=== PATIENT | male | born 1950 | race Caucasian/White ===

== ENCOUNTER → 2017-10-12 | Emergency (ER) | payer OTHER ==
[~2017-10-12] VITALS: Ht 190.5 cm; Wt 82.6 kg
== END | disposition home or self-care (01) ==
LOC: ER 09:16
DX: S00.83XA Contusion of other part of head, initial encounter (principal); S20.212A Contusion of left front wall of thorax, initial encounter; R53.1 Weakness; W18.09XA Striking against other object with subsequent fall, initial encounter; Y93.89 Activity, other specified; Y92.018 Other place in single-family (private) house as the place of occurrence of the external cause; Y99.8 Other external cause status

== ENCOUNTER 2017-12-11 15:24 | Emergency (ER) | payer OTHER ==
[~2017-12-11] VITALS: Ht 190.5 cm; Wt 79.4 kg
== END 2017-12-11 22:25 | disposition home or self-care (01) ==
LOC: ER 15:24
DX: I10 Essential (primary) hypertension (principal); N39.0 Urinary tract infection, site not specified; B96.89 Other specified bacterial agents as the cause of diseases classified elsewhere

== ENCOUNTER 2024-04-11 11:42 | Inpatient (IN) | payer OTHER ==
[~2024-04-11] VITALS: Ht 182.9 cm; Wt 149.7 kg
--- NOTE | 2024-04-11 11:53 | NUR ---
PTE ALERTA Y ORIENTADO X3 EN COMPANIA DE AMBULANCIA Y FAMILIAR. ESTA REFIERE PTE CAERSE EN LA CASA. SE REALIZA DXT 167MG/DL
[2024-04-11] MEDS ORDERED: 0.9 % SODIUM CHLORIDE 1,000 ML IV STA (12:02)
[2024-04-11] MEDS ORDERED: KETOROLAC TROMETHAMINE 60 MG VIAL IM STA (12:03)
[2024-04-11] MEDS ORDERED: THIAMINE HCL 100 MG/ML 2 ML VIAL IM STA (12:04)
--- NOTE | 2024-04-11 12:17 | NUR ---
SE LE ORIENTA A PACIENTE SOBRE LA ORDEN MEDICA, REFIERE ENTENDER LAS MISMAS. SE CANALIZA Y SE LE COLOCA EL IVF'S, SE LE TIFFANIE LAS MUESTRA, SE ADMINISTRAN LOS MEDICAMENTOS Y SE NOTIFICA PARA REALIZA CT JACKIE LA ORDEN MEDICA.
[2024-04-11 13:25] LABS: HEMATOCRIT 43.5 % (39.0-48.0); HEMOGLOBIN 14.6 g/dL (13-16.00); MEAN CELL VOLUME 98.4 fL (80.0-100.00); MEAN CORPUSCULAR HEMOGLOBIN 33.1 pg (27.00-32.0); MEAN CORPUSCULAR HGB CONC 33.6 g/dl (32.0-36.0); PLATELET COUNT 174 K/uL (150-450); RED BLOOD COUNT 4.42 M/uL (4.00-6.00); RED CELL DISTRIBUTION WIDTH 16.3 % (11.5-14.5)
[2024-04-11 13:47] LABS: ALBUMIN 3.1 gm/dL (3.4-5.0); BILIRUBIN TOTAL 1.74 mg/dL (0.3-1.2); BILIRUBIN,CONJUGATED 0.61 mg/dL (0.0-0.2); BILIRUBIN,UNCONJUGATED 1.13 mg/dL (0.0-0.6); CALCIUM 8.3 mg/dL (8.5-10.1); CREATININE SERUM 1.81 mg/dL (0.70-1.30); GFR 37.04; POTASSIUM 3.65 mEq/L (3.5-5.1); TOTAL PROTEIN 6.4 gm/dL (6.4-8.2)
[2024-04-11 19:36] LABS: HEMOGLOBIN 14.6 g/dL (13-16.00); MEAN CELL VOLUME 98.8 fL (80.0-100.00); MEAN CORPUSCULAR HEMOGLOBIN 33.6 pg (27.00-32.0); PLATELET COUNT 158 K/uL (150-450); RED BLOOD COUNT 4.35 M/uL (4.00-6.00); RED CELL DISTRIBUTION WIDTH 16.3 % (11.5-14.5)
[2024-04-11] MEDS ORDERED: FAMOTIDINE/PF 20 MG in 0.9 % SODIUM CHLORIDE 100 ML IV SCH (21:33)
[2024-04-11] MEDS ORDERED: CEFTRIAXONE SODIUM 2,000 MG in 0.9 % SODIUM CHLORIDE 100 ML IV SCH (21:36)
[2024-04-11] MEDS ORDERED: 0.9 % SODIUM CHLORIDE 1,000 ML IV SCH (21:45)
[2024-04-11] MEDS ORDERED: ONDANSETRON HCL 4 MG in 0.9 % SODIUM CHLORIDE 50 ML IV PRN (21:45)
[2024-04-11] MEDS ORDERED: ENALAPRILAT DIHYDRATE 1.25 MG/ML VIAL IV PRN (22:00)
[2024-04-11 22:30] LABS: PH,URINE 5.5 (5.0-8.0); URINE APPEARANCE Cloudy; URINE BILIRRUBIN Small (NEGATIVE); URINE BLOOD Moderate; URINE COLOR Dark Yellow; URINE GLUCOSE Negative (NEGATIVE); URINE LEUKOCYTE Trace; URINE NITRATE Negative; URINE PROTEIN 30 (NEGATIVE)
[2024-04-11 22:33] LABS: URINE BACTERIA 284.7 uL (0.0-1933); URINE EPITHELIAL CELLS 37.8 uL (0.0-38.8); URINE RBC 14.8 uL (0.0-20.8); URINE WBC 8.9 uL (0.0-23.2)
[2024-04-12] MEDS ORDERED: LACTULOSE 20 G/30 ML BLIST.PACK PO SCH
[2024-04-12 09:42] LABS: ob POSITIVE (NEGATIVE)
[2024-04-12] MEDS ORDERED: DIPHENHYDRAMINE HCL 50 MG/ML VIAL 1ML IM ONE (13:00)
[2024-04-12] MEDS ORDERED: ACETAMINOPHEN 500 MG GEL..CAP PO PRN (13:30)
[2024-04-12 15:05] LABS: INR 1.08; PARTIAL THROMBOPLASTIN TIME 28.5 SECONDS (22.0-34.0); PROTHROMBIN TIME 11.3 SECONDS (9.0-11.5)
[2024-04-12 18:47] LABS: ABG PH 7.476 (7.35-7.45); ABG PO2 76.7 mmHg (80-100); ABG pCO2 28.8 mmHg (35-45); SaO2 96.1 %
[2024-04-12 18:48] LABS: BASE EXCESS -1.4 mmol/l; BICARBONATE 20.8 mmol/l (23-25); Tco2 21.7 mmol/l; allen test SATISFACTORY; o2 21 %; puncture site RADIAL RIGHT
[2024-04-12] MEDS ORDERED: LORazepam 2 MG/ML VIAL IV SCH (21:27)
[2024-04-12] MEDS ORDERED: LORazepam 2 MG/ML VIAL IV STA (21:27)
[2024-04-13] MEDS ORDERED: PANTOPRAZOLE SODIUM 40 MG in 0.9 % SODIUM CHLORIDE 8 ML IV PUSH SCH (00:02)
[2024-04-13 08:36] LABS: HEMATOCRIT 36.7 % (39.0-48.0); HEMOGLOBIN 12.4 g/dL (13-16.00); MEAN CORPUSCULAR HEMOGLOBIN 33.7 pg (27.00-32.0); MEAN CORPUSCULAR HGB CONC 33.7 g/dl (32.0-36.0); RED BLOOD COUNT 3.67 M/uL (4.00-6.00); RED CELL DISTRIBUTION WIDTH 16.3 % (11.5-14.5)
[2024-04-13 09:09] LABS: PLATELET COUNT 117 K/uL (150-450)
[2024-04-13] MEDS ORDERED: REMDESIVIR 100 MG VIAL IV NR (17:00)
[2024-04-13] MEDS ORDERED: THIAMINE HCL 100 MG/ML 2 ML VIAL IV SCH (18:04)
[2024-04-13] MEDS ORDERED: FOLIC ACID 5 MG/ML VIAL IV SCH (18:05)
[2024-04-14] MEDS ORDERED: PANTOPRAZOLE SODIUM 40 MG in 0.9 % SODIUM CHLORIDE 8 ML IV PUSH SCH
[2024-04-14 08:26] LABS: HEMATOCRIT 37.6 % (39.0-48.0); HEMOGLOBIN 12.8 g/dL (13-16.00); MEAN CELL VOLUME 99.5 fL (80.0-100.00); MEAN CORPUSCULAR HEMOGLOBIN 33.8 pg (27.00-32.0); RED BLOOD COUNT 3.78 M/uL (4.00-6.00); RED CELL DISTRIBUTION WIDTH 16.7 % (11.5-14.5)
[2024-04-14 08:37] LABS: PLATELET COUNT 110 K/uL (150-450)
[2024-04-14 09:07] LABS: ALBUMIN 2.5 gm/dL (3.4-5.0); CALCIUM 7.6 mg/dL (8.5-10.1); CREATININE SERUM 0.79 mg/dL (0.70-1.30); GFR 96.41; PHOSPHOROUS 2.6 mg/dL (2.5-4.9); POTASSIUM 3.48 mEq/L (3.5-5.1)
[2024-04-14] MEDS ORDERED: POTASSIUM CHLORIDE 20MEQ/100ML H2O PB IV SCH (12:00)
[2024-04-14] MEDS ORDERED: REMDESIVIR 100 MG VIAL IV SCH (12:00)
[2024-04-15 16:37] LABS: HEMATOCRIT 36.5 % (39.0-48.0); HEMOGLOBIN 12.2 g/dL (13-16.00); MEAN CELL VOLUME 99.4 fL (80.0-100.00); MEAN CORPUSCULAR HEMOGLOBIN 33.3 pg (27.00-32.0); MEAN CORPUSCULAR HGB CONC 33.5 g/dl (32.0-36.0); RED BLOOD COUNT 3.67 M/uL (4.00-6.00); RED CELL DISTRIBUTION WIDTH 16.3 % (11.5-14.5)
[2024-04-15 16:40] LABS: PLATELET COUNT 108 K/uL (150-450)
[2024-04-15 17:11] LABS: ALBUMIN 2.5 gm/dL (3.4-5.0); BILIRUBIN TOTAL 0.77 mg/dL (0.3-1.2); CALCIUM 7.7 mg/dL (8.5-10.1); CREATININE SERUM 0.7 mg/dL (0.70-1.30); GFR 110.85; GLOBULINA 2.4 G/DL (2.4-3.5); POTASSIUM 3.64 mEq/L (3.5-5.1); TOTAL PROTEIN 4.9 gm/dL (6.4-8.2)
[2024-04-16] MEDS ORDERED: PANTOPRAZOLE SODIUM 40 MG/VIAL VIAL ONE (08:00)
[2024-04-16 11:09] LABS: HEMATOCRIT 33.9 % (39.0-48.0); HEMOGLOBIN 11.5 g/dL (13-16.00); MEAN CELL VOLUME 100.2 fL (80.0-100.00); MEAN CORPUSCULAR HEMOGLOBIN 34.1 pg (27.00-32.0); PLATELET COUNT 107 K/uL (150-450); RED BLOOD COUNT 3.39 M/uL (4.00-6.00); RED CELL DISTRIBUTION WIDTH 16.3 % (11.5-14.5)
[2024-04-17] MEDS ORDERED: CEFTRIAXONE SODIUM 2,000 MG VIAL IV SCH (09:00)
== END 2024-04-17 19:15 | disposition home or self-care (01) | DRG 682 ==
LOC: ER 11:42 → SEC-K 21:52 → MEDJ 04-12 04:34
PROVIDERS: Emergency Medicine; General Practice; Student in an Organized Health Care Education/Training Program; ADMIT Internal Medicine; ATTEND Internal Medicine
PROC: BW21ZZZ Computerized Tomography (CT Scan) of Abdomen and Pelvis (ICD-10-PCS; principal; 2024-04-11)
PROC: BB24ZZZ Computerized Tomography (CT Scan) of Bilateral Lungs (ICD-10-PCS; 2024-04-11)
PROC: BW28ZZZ Computerized Tomography (CT Scan) of Head (ICD-10-PCS; 2024-04-11)
PROC: XW033E5 Introduction of Remdesivir Anti-infective into Peripheral Vein, Percutaneous Approach, New Technology Group 5 (ICD-10-PCS; 2024-04-12)
DX: N17.8 Other acute kidney failure (principal); U07.1 COVID-19; N39.0 Urinary tract infection, site not specified; D72.828 Other elevated white blood cell count; E86.0 Dehydration; F10.20 Alcohol dependence, uncomplicated; I10 Essential (primary) hypertension; R41.0 Disorientation, unspecified; R63.0 Anorexia; R79.82 Elevated C-reactive protein (CRP); S20.212A Contusion of left front wall of thorax, initial encounter; S00.83XA Contusion of other part of head, initial encounter; W13.3XXA Fall through floor, initial encounter; Y92.009 Unspecified place in unspecified non-institutional (private) residence as the place of occurrence of the external cause

== ENCOUNTER 2024-04-22 10:37 | Emergency (ER) | payer OTHER ==
[~2024-04-22] VITALS: Ht 188 cm; Wt 77.1 kg
[2024-04-22] MEDS ORDERED: RINGERS SOLUTION,LACTATED 1,000 ML IV STA (11:33)
[2024-04-22] MEDS ORDERED: THIAMINE HCL 100 MG/ML 2 ML VIAL IV STA (11:35)
[2024-04-22] MEDS ORDERED: CEFTRIAXONE SODIUM 2,000 MG VIAL IV ONE (11:45)
[2024-04-22] MEDS ORDERED: THIAMINE HCL 100 MG/ML 2 ML VIAL ONE (11:47)
[2024-04-22] MEDS ORDERED: CEFTRIAXONE SODIUM 2,000 MG VIAL ONE (11:47)
[2024-04-22 12:10] LABS: HEMATOCRIT 33.9 % (39.0-48.0); HEMOGLOBIN 11.6 g/dL (13-16.00); MEAN CELL VOLUME 98.9 fL (80.0-100.00); MEAN CORPUSCULAR HEMOGLOBIN 33.8 pg (27.00-32.0); MEAN CORPUSCULAR HGB CONC 34.2 g/dl (32.0-36.0); PLATELET COUNT 377 K/uL (150-450); RED BLOOD COUNT 3.43 M/uL (4.00-6.00); RED CELL DISTRIBUTION WIDTH 15.5 % (11.5-14.5)
[2024-04-22 12:43] LABS: BILIRUBIN TOTAL 1.52 mg/dL (0.3-1.2); BILIRUBIN,CONJUGATED 0.68 mg/dL (0.0-0.2); BILIRUBIN,UNCONJUGATED 0.84 mg/dL (0.0-0.6); CALCIUM 8.2 mg/dL (8.5-10.1); CREATININE SERUM 0.69 mg/dL (0.70-1.30); GFR 112.71; POTASSIUM 4.11 mEq/L (3.5-5.1); TOTAL PROTEIN 5.9 gm/dL (6.4-8.2)
[2024-04-22 13:49] LABS: PH,URINE 6.5 (5.0-8.0); URINE APPEARANCE Clear; URINE BILIRRUBIN Small (NEGATIVE); URINE BLOOD Negative; URINE COLOR Dark Yellow; URINE GLUCOSE Negative (NEGATIVE); URINE LEUKOCYTE Negative; URINE NITRATE Negative; URINE PROTEIN Trace (NEGATIVE)
[2024-04-22 13:52] LABS: URINE BACTERIA 214.1 uL (0.0-1933); URINE EPITHELIAL CELLS 8.9 uL (0.0-38.8); URINE RBC 10.2 uL (0.0-20.8); URINE WBC 11.7 uL (0.0-23.2)
[2024-04-22 14:16] LABS: URINE UROBILINOGEN >= 8.0 E.U./dl
== END 2024-04-22 19:00 | disposition home or self-care (01) ==
LOC: ER 10:37
PROVIDERS: General Practice
DX: L89.159 Pressure ulcer of sacral region, unspecified stage (principal)
CPT/HCPCS: 36415; 96365; 99282; J0696; J3490